=== PATIENT | male | born 1985 | race Caucasian/White ===

== ENCOUNTER → 2023-08-19 14:56 | Outpatient (REF) | payer OTHER, SELFPAY | LOC: RAD 14:56 | PROVIDERS: ATTENDING PHYSICIAN Nurse Practitioner Family; FAMILY PHYSICIAN Physician Assistant Medical | DX: R14.0 Abdominal distension (gaseous) (principal) | CPT/HCPCS: 74018 ==

== ENCOUNTER → 2023-09-05 08:55 | Outpatient (REF) | payer OTHER, SELFPAY | LOC: HWRAD 08:55 | PROVIDERS: ATTENDING PHYSICIAN Nurse Practitioner Family; FAMILY PHYSICIAN Physician Assistant Medical | DX: R14.0 Abdominal distension (gaseous) (principal) | CPT/HCPCS: 76700 ==